=== PATIENT | female | born 2005 | race Caucasian/White ===

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

== ENCOUNTER 2023-01-15 14:15 | Emergency (ER) | payer OTHER ==
[~2023-01-15] VITALS: Ht 157.5 cm; Wt 87.5 kg
[~2023-01-15 14:15] MED LIST changes: +Lexapro 10 mg T10 MG PO
[2023-01-15 15:02] LABS: BASOPHILS ABSOLUTE AUTO 0.05 K/mm3 (0.00-0.23); BASOPHILS PERCENT AUTO 1 % (0-2); EOSINOPHILS ABSOLUTE AUTO 0.08 K/mm3 (0.00-0.68); EOSINOPHILS PERCENT AUTO 1 % (0-6); Hematocrit 37.6 % (33.0-51.0); Hemoglobin 12.3 g/dL (11.5-16.0); IMMATURE GRAN ABSOLUTE AUTO 0.02 K/mm3 (0.00-0.10); IMMATURE GRAN PERCENT AUTO 0 % (0-1); LYMPHOCYTES ABSOLUTE AUTO 2.58 K/mm3 (0.84-5.20); LYMPHOCYTES PERCENT AUTO 41 % (21-46); MONOCYTES PERCENT AUTO 8 % (4-13); Mean Corpuscular HGB 28.5 pg (26.0-34.0); Mean Corpuscular HGB Conc 32.7 g/dL (31.5-36.5); Mean Corpuscular Volume 87 fL (80-100); Mean Platelet Volume 10.6 fL (9.1-12.4); NEUTROPHILS ABSOLUTE AUTO 3.08 K/mm3 (1.96-9.15); NEUTROPHILS PERCENT AUTO 49 % (41-73); Platelet Count 345 K/mm3 (150-400); RDW Coefficient Variation 12.3 % (11.7-14.2); Red Blood Cell Count 4.31 M/mm3 (3.80-5.20); White Blood Cell Count 6.31 K/mm3 (4.00-11.30)
[2023-01-15 15:33] LABS: Salicylate <1.7 mg/dL (2.8-20.0); Thyroxine (T4) 8.6 ug/dL (4.8-13.9)
[2023-01-15 15:50] LABS: Ethanol (Alcohol), Blood, Med <3 mg/dL; Thyroid Stimulating Hormone 0.675 uIU/mL (0.360-4.800)
[2023-01-15 15:53] LABS: Acetaminophen, Random <2.0 ug/mL (10.0-30.0); Alanine Aminotransfer (ALT/SGP 18 U/L (12-78); Alk Phos 69 U/L (45-116); Anion Gap 9 mmol/L (6-16); Aspartate Aminotrans (AST/SGOT 17 U/L (12-37); Bilirubin, Total 0.4 mg/dL (0.1-1.0); Blood Urea Nitrogen 8 mg/dL (8-21); CO2, Blood 26 mmol/L (21-32); Calcium, Blood 9.2 mg/dL (8.5-10.1); Chloride, Blood 105 mmol/L (98-108); Creatinine, Blood 0.62 mg/dL (0.40-1.00); Glomerular Filtration Rate 131 (60-); Glucose, Blood 122 mg/dL (70-99); Potassium, Blood 3.5 mmol/L (3.5-5.5); Sodium, Blood 140 mmol/L (136-145)
[2023-01-15 20:33] VITALS: BP 112/71
[2023-01-15 20:52] LABS: Beta HCG, Quantitative, Serum <1 mIU/mL (0-3)
== END 2023-01-15 20:36 | disposition home or self-care (01) ==
LOC: ER 14:15
PROVIDERS: Emergency Medicine
DX: T43.222A Poisoning by selective serotonin reuptake inhibitors, intentional self-harm, initial encounter (principal); F32.A Depression, unspecified; F42.9 Obsessive-compulsive disorder, unspecified; F41.9 Anxiety disorder, unspecified; Z60.8 Other problems related to social environment
CPT/HCPCS: 80053; 84436; 84443; 84702; 85025; 93005; 93010; 99285-25; G0480; Q3014